=== PATIENT | male | born 1975 | race Caucasian/White ===

== ENCOUNTER 2017-05-30 07:55 | Inpatient (IN) | payer BC, OTHER ==
[~2017-05-30] VITALS: Ht 182.9 cm; Wt 81.6 kg
--- NOTE | 2017-05-30 19:15 | NUR ---
INTAKE ASSESSMENT BP:138/94, HR:105, RR:18, SpO2: 95%, T:98.1 Pt is in stable condition and is able to be admitted on the unit. Unit protocols regarding medications and vital signs every 4 hours were explained. Pt verbalized understanding. Will continue admission upon arrival on the unit.
--- NOTE | 2017-05-30 19:52 | NUR ---
ADMISSION NOTE Pt is a 41 y/o male arrived on unit at 1952 for ETOH withdrawal. Patient's body and skin check completed, skin intact and no contraband found. Pt has NKA, full code, regular diet and on fall/seizure precautions. Pt has PMH of anxiety, left ankle fracture (currently in cast) and hx of right shoulder surgery. Pts vitals upon admission are as follows: BP 138/94, HR 105, R 18, T 98.2, O2 95% and Pain 7/10. Pt does not have a PCP, smokes 1 pack daily and denies being hospitalized or in [place] [facility] in past 30 days. Pt does not qualify for MRSA swab. Pt is currently unemployed and lives alone. Pt reports having multiple "blackouts" from drinking recently. 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 Substance Use History: 1. Vodka 500 ml daily, last intake of 500 ml throughout the day ending at approximately 1600, at this rate for 6 months. 2. Beer 15 servings at 12-16 ounces each daily, last intake of "a few drinks," at this rate for 6 months. 3. Cocaine unspecified amount on an intermittent non-daily basis, last intake of unspecified amount "a few days ago," at this rate for 20 years. 4. Marijuana unspecified amount on an intermittent non-daily basis, last intake of unspecified amount on 05/29/17, at this rate for 20 years. Pt reports multiple treatment histories in the past, unable to recall names, last residential treatment facility was 5 years ago. Pt denies family PMH or substance abuse hx. Pt is A&O x 4, speech is coherent and was able to answer questions pertaining to admission. Pt reports "I started to feel sick when I was being assessed downstairs." Gait is unsteady r/t left ankle fracture from 10 days ago. Pt uses crutches or wheelchair for ambulation. Pt has a wrapped cast on left ankle. Upon assessment pt presents with anxiety, agitation, restlessness, nausea without vomiting, stomach cramps, pain in left foot r/t prior injury, heartburn, "hot and cold changes," chills, tremors and flushed skin. Respirations even and unlabored, lung sounds clear in all lung grey. Denies chest pain, SOB, no swelling present other than in left ankle from fx. Abdomen soft and non-tender, bowel sounds active in all quadrants. Last BM yesterday. Denies SI/HI. Patient given instructions about unit protocol and how to use call light, pt verbalizes understanding. Safety measures in place, side rails up x 2 with pads, bed locked in lowest position, call light within reach. Will continue to monitor.
[2017-05-30 20:00] VITALS: BP 139/94
[2017-05-30] MEDS ORDERED: NICOTINE POLACRILEX 4 MG GUM-PK OF TEN BC PRN (20:00)
[2017-05-30] MEDS ORDERED: MAGNESIUM HYDROXIDE 30 ML LIQUID UDC PO PRN (20:00)
[2017-05-30] MEDS ORDERED: LOPERAMIDE HCL 2 MG CAPSULE PO PRN (20:00)
[2017-05-30] MEDS ORDERED: LORAZEPAM 1 MG TABLET PO PRN (20:00)
[2017-05-30] MEDS ORDERED: DICYCLOMINE HCL 20 MG TABLET PO PRN (20:00)
[2017-05-30] MEDS ORDERED: NICOTINE 14 MG/24HR PATCH TD PRN (20:00)
[2017-05-30] MEDS ORDERED: ONDANSETRON 4 MG/2 ML VIAL IM PRN (20:00)
[2017-05-30] MEDS ORDERED: MIRALAX 17 GM POWD.PACK PO PRN (20:00)
[2017-05-30] MEDS ORDERED: LORAZEPAM 2 MG/1 ML VIAL IM PRN (20:00)
[2017-05-30 20:30] LABS: *AMPHETAMINE, URINE NEGATIVE (NEGATIVE); *BARBITURATE, URINE NEGATIVE (NEGATIVE); *CANNABINOID, URINE POSITIVE (NEGATIVE); *COCCAINE, URINE POSITIVE (NEGATIVE); *OPIATE, URINE NEGATIVE (NEGATIVE); *PHENCYCLIDINE SCREEN,URINE NEGATIVE (NEGATIVE)
[2017-05-30] MEDS ORDERED: LORAZEPAM 1 MG TABLET PO SCH (21:00)
[2017-05-30 21:16] LABS: BASOPHILS # (AUTO) 0.1 K/uL (0.0-8.0); BASOPHILS % (AUTO) 0.6 % (0.0-2.0); EOSINOPHILS # (AUTO) 0.1 K/uL (0.0-0.7); EOSINOPHILS % (AUTO) 0.9 % (0.0-7.0); HEMATOCRIT 42.1 % (36.7-47.1); HEMOGLOBIN 14.3 g/dL (12.5-16.3); LYMPHOCYTES # (AUTO) 2.6 K/uL (20.0-40.0); LYMPHOCYTES % (AUTO) 31.1 % (20.5-51.5); MEAN CORPUSCULAR HEMOGLOBIN 30.1 uug (23.8-33.4); MEAN CORPUSCULAR HGB CONC 34 g/dL (32.5-36.3); MEAN CORPUSCULAR VOLUME 88.8 fL (73.0-96.2); MONOCYTES # (AUTO) 0.7 K/uL (2.0-10.0); MONOCYTES % (AUTO) 8.5 % (0.0-11.0); NEUTROPHILS % (AUTO) 58.9 % (38.5-71.5); PLATELET COUNT (AUTO) 268 K/uL (152-348); RED BLOOD CELL COUNT(AUTO) 4.74 MIL/uL (4.06-5.63); WHITE BLOOD COUNT (AUTO) 8.4 K/uL (3.6-10.2)
[2017-05-30] MEDS: THIAMINE HCL 100 MG TABLET PO SCH (21:17)
[2017-05-30] MEDS: IBUPROFEN 600 MG TABLET PO PRN (21:18)
[2017-05-30] MEDS: MAG HYDROX/AL HYDROX/SIMETH 30 ML LIQUID UDC PO PRN (21:18)
[2017-05-30] MEDS: ONDANSETRON ODT 4 MG TAB.RAPDIS SL PRN (21:18)
--- NOTE | 2017-05-30 21:18 | NUR ---
LEONIDAS BECKFORD ODT, BENTYL, MOTRIN AND MAALOX ADMINISTRATION Pt reports nausea without vomiting, stomach cramps, pain in left foot r/t prior injury and heartburn. Safety measures in place. Call light within reach. Will continue to monitor. Addendum: 05/30/17 at 3935 by JEROME LORENZ RN REASSESSMENT AT [id number]
[2017-05-30 21:25] LABS: BILIRUBIN,TOTAL 0.4 mg/dL (0.2-1.0); CREATININE 1.2 mg/dL (0.6-1.3); MAGNESIUM 1.8 mg/dL (1.8-2.4); POTASSIUM 3.5 mmol/L (3.5-5.1); TOTAL PROTEIN, SERUM 7.5 g/dL (6.4-8.2)
[2017-05-30] MEDS: LORAZEPAM 1 MG TABLET PO PRN (22:26)
--- NOTE | 2017-05-30 22:33 | NUR ---
LEONIDAS WINSTON, BENTYL, MOTRIN AND MAALOX REASSESSMENT Pt reports nausea and stomach cramps improved but are still present. Pt reports persistent pain in left foot 07/20. Pt reports heartburn has ceased. Safety measures in place. Call light within reach. Will continue to monitor. Addendum: 05/31/17 at 0013 by JEROME LORENZ RN SHAKEEL WINSTON REASSESSMENT DONE AT [id number]
--- NOTE | 2017-05-30 22:34 | NUR ---
PRN ATIVAN 2 MG ADMINISTRATION CIWA 15, orders to give PRN Ativan 2 mg PO. Pt presents with anxiety, agitation, restless legs, flushed skin, tremors, nausea without vomiting and photosensitivity. Safety measures in place. Call light within reach. Will continue to monitor.
--- NOTE | 2017-05-30 23:34 | NUR ---
PRN ATIVAN 2 MG REASSESSMENT Pt laying in bed with eyes closed, CIWA deferred, to be assessed when pt is awake per orders. Respirations even and unlabored. Safety measures in place. Call light within reach. Will continue to monitor.
[2017-05-31] VITALS: BP 103/62
--- NOTE | 2017-05-31 | NUR ---
CIWA DEFERRED Pt laying in bed with eyes closed, CIWA deferred, to be assessed when pt is awake per orders. Respirations even and unlabored. Safety measures in place. Call light within reach. Will continue to monitor.
--- NOTE | 2017-05-31 03:30 | NUR ---
Assumed care: Assumed care from primary nurse. All information noted.
[2017-05-31 04:00] VITALS: BP 122/74
--- NOTE | 2017-05-31 07:25 | NUR ---
End of Shift Notes: Pt currently in bed with eyes closed. Pt slept for 8 hours. Pts last CIWA was 15. Pt currently on ativan taper to manage withdrawal symptoms. PRN Zofran and PRN Ativan given during shift. Fall and Sz precautions observed. Bed in lowest position. Side rails up x2. Call light functioning and within reach. All needs attended and met. Will endorse to day shift nurse.
--- NOTE | 2017-05-31 07:30 | NUR ---
Start Of Shift Report received Pt is a 41 year old male admitted to [facility] for ETOH and cocaine withdrawals. Pt is placed on a 5 day Ativan taper which is starting today. Pt has a left ankle fracture with a cast on it. Pt is W/C bound. Encouraged pt to drink more fluids to help facilitate detox process. When greeting pt, pt stated " I don't feel good, i feel the withdrawals coming up". Pt appeared anxious, agitated and sweaty, skin was very moist. Pt's last CIWA was a 15 at 0400. Pt received PRN Zofran and Ativan last night, per shift production supervisor nurse medication effective. Pt slept 8 hours on and off, stating he did not get good sleep during the night time. all orders reviewed, plan of care reviewed will continue to monitor and provide care for pt.
[2017-05-31 08:00] VITALS: BP 143/92
[2017-05-31] MEDS: MULTIVITAMINS,THERAPEUTIC TABLET PO SCH (08:44)
[2017-05-31] MEDS: LORAZEPAM 1 MG TABLET PO SCH ×4 (08:44→20:41)
[2017-05-31] MEDS: FOLIC ACID 1 MG TABLET PO SCH (08:44)
[2017-05-31] MEDS: THIAMINE HCL 100 MG TABLET PO SCH (08:44)
[2017-05-31] MEDS ORDERED: TUBERCULIN,PURIF.PROT.DERIV. 5 TU/0.1 ML TEST ID ONE (09:00)
[2017-05-31] MEDS: LORAZEPAM 1 MG TABLET PO PRN (10:57)
--- NOTE | 2017-05-31 10:57 | NUR ---
PRN MED. Pt c/o anxiety, presented with tremors moist skin and agitation, Pt stated " i don't feel good I'm having bad withdrawals" Pt assessed pt's CIWA score was 13. PRN Ativan 2 Mg administered PO. All needs met will continue to monitor effectiveness of the medication.
--- NOTE | 2017-05-31 11:00 | NUR ---
Nursing Note Pt's UDS is positive for BZD's. He denies using any BZD's. He was hospitalized 10 days ago for left ankle fracture but is unable to recall any of the medications he was given.
[2017-05-31] MEDS ORDERED: CLONIDINE HCL 0.1 MG TABLET PO PRN (11:30)
[2017-05-31] MEDS ORDERED: hydrALAZINE HCL 50 MG TABLET PO PRN (11:30)
--- NOTE | 2017-05-31 11:57 | NUR ---
PRN Reassessment Medication effective pt stated " i feel better now" Pts CIWA has decreased to 11, all needs met will continue to monitor pt
[2017-05-31 12:00] VITALS: BP 135/86
--- NOTE | 2017-05-31 14:00 | NUR ---
TRANSFER OF CARE RECEIVED REPORT FROM NURSE. PT IS CURRENTLY IN BED WITH EYES CLOSED, APPEARS TO BE SLEEPING. LAST CIWA IS 11. WILL CONTINUE TO MONITOR.
[2017-05-31] MEDS: IBUPROFEN 600 MG TABLET PO PRN ×2 (15:35→20:41)
--- NOTE | 2017-05-31 15:35 | NUR ---
PRN PT C/O PAIN IN THE L ANKLE D/T FX; PAIN 8/10. IBUPROFEN 600 MG PO PRN GIVEN. WILL MONITOR FOR EFFECTIVENESS.
[2017-05-31 16:00] VITALS: BP 128/66
--- NOTE | 2017-05-31 16:35 | NUR ---
REASSESSMENT PT REPORTS MEDICATION EFFECTIVE NOW 5/10 PAIN. WILL CONTINUE TO MONITOR.
--- NOTE | 2017-05-31 18:54 | NUR ---
END OF SHIFT PT IS A 41 Y/O M ADMITTED FOR ETOH W/D ON 05/30/17. PT IS ON AN ATIVAN TAPER THAT STARTED TODAY AND TOLERATING WELL. PT HAS BEEN IN BED SLEEPING INTERMITTENTLY MOST OF THE DAY. PT HAS A L ANKLE FX WITH A CAST AND AMBULATES WITH A WHEELCHAIR. PT STATES HE IS FEELING HOT AND HAVE PAIN IN THE L ANKLE 8/10. IBUPROFEN 600 MG PO PRN GIVEN AND WAS EFFECTIVE . ENCOURAGED PT TO INCREASE FLUIDS TO FACILITATE IN DETOX AND INCREASE HYDRATION. LAST CIWA IS 13. PT CONSUMED 25/50/0 % OF MEALS. SAFETY MEASURES IN PLACE. WILL GIVE ENDORSEMENT TO WEATHERIZATION COORDINATOR NURSE.
--- NOTE | 2017-05-31 19:45 | NUR ---
Start of Shift Notes Received 41 y/o male px, admitted on 05/30/2017 for medically supervised withdrawals from ETOH. Px was placed on 5 day Ativan taper. Last reported CIWA 13 by AM shift nurse. During the rounds at 1940, px is awake on bed in low fowlers position, and left casted foot elevated on 2 pillows. Px looks anxious, has flat affect, disheveled, unshaven. Px's room is odorous. Px stated "My anxiety is 4/10, I have leg pain 6/10 and diarrhea". Bed on lowest position, bed rails up 2x, and call light within reach.
[2017-05-31 20:00] VITALS: BP 147/87
--- NOTE | 2017-05-31 20:41 | NUR ---
PRN meds At 2040, px received Imodium 2mg/cap, 2 caps PO for first bout of 2x watery stools and Motrin 600 mg/tab, 1 tab PO for left ankle pain 08/20. We'll continue to monitor.
--- NOTE | 2017-05-31 21:41 | NUR ---
Reassessment of Pain Px verbalized that the pain is still at 6/10 after an hour of administration of Motrin 600 mg PO. We'll continue to monitor.
[2017-06-01] VITALS: BP 124/96
[2017-06-01 04:00] VITALS: BP 121/88
--- NOTE | 2017-06-01 04:00 | NUR ---
CIWA deferred CIWA deferred at 0000 and 0400 due to the px is asleep, to assess if the px is awake per doctor's order. We'll continue to monitor.
--- NOTE | 2017-06-01 07:12 | NUR ---
End of Shift Notes During the shift at 2040, Px was given Imodium 4 mg PO for 1st bout of diarrhea 2x and Motrin 600 mg PO for left leg pain of 6/10. Pain remains at 6/10. Motrin was not effective but px didn't ask for more medication. Imodium was effective, no more bouts of diarrhea after administration of Imodium PO. Px's oral intake is 1 L, voided 2x, No BM after 2 bouts of watery stools. At 0630, px is asleep on bed in low fowlers position, left leg elevated on 2 pillows. CIWA improved from 12 to 10. Bed on lowest position, bed rails up 2x, and call light within reach. Px endorsed to AM shift nurse.
--- NOTE | 2017-06-01 07:24 | NUR ---
Start of Shift Notes: Received patient in his room. Alert and oriented x 4. Denies AV hallucinations. Patient states "I feel much better." Room appears unkept. Patient appears disheveled and odorous. Encouraged maintenance of personal hygiene and space. Patient is a 41 year old male admitted for ETOH withdrawal. Placed on a 5-day Ativan taper as ordered. Patient is noted with cast on left ankle and hx of right shoulder fracture and anxiety. Educated patient on his current plan of care for the day and his medication regimen. Encouraged oral fluid intake and encouraged group participation to learn new skills to prevent relapse. Will continue to monitor.
[2017-06-01 08:00] VITALS: BP 137/75
[2017-06-01] MEDS: LORAZEPAM 1 MG TABLET PO SCH ×3 (08:27→20:24)
[2017-06-01] MEDS: THIAMINE HCL 100 MG TABLET PO SCH (08:27)
[2017-06-01] MEDS: FOLIC ACID 1 MG TABLET PO SCH (08:27)
[2017-06-01] MEDS: IBUPROFEN 600 MG TABLET PO PRN (08:27)
--- NOTE | 2017-06-01 08:27 | NUR ---
Motrin 600 mg PO given: Patient noted with complain of 5/10 left foot pain related to a fracture. Non-pharmacological interventions provided but ineffective. Medicated patient with Motrin 600 mg PO as ordered. Will monitor for effectiveness.
[2017-06-01] MEDS: MULTIVITAMINS,THERAPEUTIC TABLET PO SCH (08:32)
--- NOTE | 2017-06-01 09:27 | NUR ---
Re-assessment: Motrin Per patient, PRN Motrin was effective in reducing pain. PL 2.
[2017-06-01 10:08] LABS: HEPATITIS B SURFACE AG Negative (Negative)
[2017-06-01] MEDS: ONDANSETRON ODT 4 MG TAB.RAPDIS SL PRN (10:26)
--- NOTE | 2017-06-01 10:26 | NUR ---
Zofran 4 mg SL given: Patient complained of nausea but able to consume 100 % of breakfast. Medicated patient with Zofran 4 mg SL as ordered. Will monitor for effectiveness.
--- NOTE | 2017-06-01 10:27 | NUR ---
OT Ativan 2 mg PO given: Patient verbalizes "I'm having very strong cravings, I want to start drinking." CIWA 14, due to gross tremors, anxiety and agitation. OT order for Ativan 2 mg PO given as ordered per MD. Will monitor for effectiveness.
[2017-06-01] MEDS ORDERED: LORAZEPAM 1 MG TABLET PO ONE (10:30)
--- NOTE | 2017-06-01 11:26 | NUR ---
Re-assessment: Zofran 4 mg Per patient, PRN Zofran was effective in relieving nausea.
--- NOTE | 2017-06-01 11:27 | NUR ---
Re-assessment: Ativan 2 mg CIWA 10, less anxiety, less tremors, and less sweating noted. Patient states "I feel much better, cravings are no longer there." OT Ativan 2 mg PO was effective.
--- NOTE | 2017-06-01 11:43 | NUR ---
D/C'd from PT: Patient was discontinued from PT at this time. Patient is able to ambulate with crutches on unit and able to use w/c for locomotion off unit.
[2017-06-01 12:00] VITALS: BP 145/95
--- NOTE | 2017-06-01 12:27 | NUR ---
Therapist prompted client to attend all groups while in treatment to increase feelings of being connected to others and not be isolated in bedroom. Therapist explained the benefits of attending groups such as learning new coping tools, learning about feelings/emotions and being able to learn to decrease negative feelings and thoughts.
[2017-06-01] MEDS ORDERED: HYDROXYZINE PAMOATE 25 MG CAPSULE PO ONE (12:30)
--- NOTE | 2017-06-01 12:30 | NUR ---
Communication: Patient verbalized "I don't feel well, I am having cravings again. I want to drink Vodka." CIWA 12 due to anxiety, agitation. BP 145/95, Pulse 75. Notified MD Cooney. entered in orders for patient to receive Vistaril 50 mg PO x 1 now. Orders noted and carried out.
--- NOTE | 2017-06-01 12:34 | NUR ---
OT Vistaril 50 mg PO/Clonidine 0.1mg PO given: OT Vistaril 50 mg PO given for complain of anxiety. BP 145/95, Pulse 75. Denies any complains of headache, dizziness and/or chest pain. Denies S/i or H/I. No AV hallucinations noted. Medicated patient with Vistaril 50 mg PO and Clonidine 0.1mg PO given as ordered. Will monitor for effectiveness.
--- NOTE | 2017-06-01 13:34 | NUR ---
Re-assessment: Clonidine/Vistaril Patient's blood pressure 130/86, appears to be more at ease. Laying in bed watching TV. PRN Vistaril and Clonidine were effective.
[2017-06-01 16:00] VITALS: BP 128/84
--- NOTE | 2017-06-01 16:35 | NUR ---
MD Communication: Labs Patient's Hep C results returned: >11.0H. Notified MD Cooney. Per MD, he will talk to the patient and inform him.
--- NOTE | 2017-06-01 19:02 | NUR ---
End of Shift Notes: Patient continues to be on 5-day Ativan taper as ordered. No adverse reactions noted. VS monitored closely. Noted with BP 145/95 at 1234, medicated patient with Clonidine 0.1mg PO as ordered. Withdrawal symptoms were closely monitored. Initial CIWA 14, patient presented with anxiety/agitation, fatigue, gross tremors, sweating and increased cravings. Medicated patient with Motrin 600 mg PO at 0827 for pain to left ankle with help after 1 hour. PRN Zofran and OT Ativan 2 mg PO was given at 1027 with help. At 1234, PRN Vistaril was given for anxiety with help after 1 hour. Last CIWA 11. Per patient, Ativan has been effective in reducing his withdrawal symptoms. Patient uses w/c for locomotion off unit and crutches for locomotion on unit. Socially withdrawn with sad facial expression. Encouraged to socialize with his peers and to attend group for redirection and social interaction. All needs met and attended. Will continue to monitor closely.
--- NOTE | 2017-06-01 19:02 | NUR ---
START OF SHIFT NOTE: 41 year old male presented for Alcohol/Vodka and Beer withdrawal, tolerated well with ordered 5 day Ativan Taper. Patient is alert and oriented x4. Patient uses wheelchair and crutches. Patient 's c/o feelings of low self- esteem, increased anxiety, depression, and irritability. Patient denied SI/HI. Emotional support provided, and patient 's reassuring. Last CIWA=3 @1600 per day shift nurse report. CIWA=11 @1600: Patient presented with anxiety, agitation, nervousness, nausea, tremors, sweating, restlessness, fatigue, and body aches. PRN Motrin 600 mg PO administrated for pain in left ankle@0827, PRN Zofran 4 mg SL administrated for nausea @1026, PRN Vistaril 50 mg PO administrated for anxiety @1234, and PRN Clonidine 0.1 mg PO administrated @1234 for blood pressure 145/95 as ordered by day shift nurse were effective per day shift nurse report. Patient encouraged to express his feelings. Encouraged to fluids intake as tolerated. Encouraged to attend group activities. All needs met. Safety measures in place: Call light within reach, bed is locked in lowest position, padded bed rails up bilaterally. Patient endorsed by outgoing day shift nurse. Will continue to monitor closely.
[2017-06-01 20:00] VITALS: BP 134/87
[2017-06-01] MEDS: diphenhydrAMINE 50 MG CAPSULE PO PRN (20:24)
[2017-06-01] MEDS: GABAPENTIN 300 MG CAPSULE PO SCH (20:24)
--- NOTE | 2017-06-01 20:24 | NUR ---
PRN BENADRYL 50 MG 1 CAPSULE PO ADMINISTRATION PRN BENADRYL 50 MG PO ADMINISTRATED FOR INSOMNIA ORDERED. PATIENT TOLERATED WELL. ALL SAFETY MEASURES IN PLACE: CALL LIGHT WITHIN REACH, BED LOCKED IN LOWEST POSITION, PADDED BED RAILS UP X2. WILL CONTINUE TO MONITOR CLOSELY.
--- NOTE | 2017-06-01 21:24 | NUR ---
RE-ASSESSMENT PRN Benadryl PO administrated for insomnia @2100 was effective. Patient is sleeping. Respirations are even and unlabored. RR:15. All needs met. Safety measures in place: Call light within reach, bed is locked in lowest position, padded bed rails up bilaterally. Will continue to monitor closely.
[2017-06-02] VITALS: BP 199/91
[2017-06-02] MEDS: ACETAMINOPHEN 325 MG TABLET PO PRN ×2 (00:20→08:31)
--- NOTE | 2017-06-02 00:20 | NUR ---
PRN TYLENOL 650 MG PO ADMINISTRATION Patient c/o BLE pain "11/20". PRN Tylenol 650 mg PO administrated for as ordered with full glass of water. Patient tolerated well. All needs met. Safety measures in place: Call light within reach, bed is locked in lowest position, padded bed rails up bilaterally. Will continue to monitor closely.
--- NOTE | 2017-06-02 01:20 | NUR ---
RE-ASSESSMENT Patient is sleeping. RR 16. Respirations are even and unlabored. PRN Tylenol 650 mg PO administrated @0020 for BLE pain "11/20" was effective. All needs met. Safety measures in place: Call light within reach, bed is locked in lowest position, padded bed rails up bilaterally. Will continue to monitor closely.
[2017-06-02 04:00] VITALS: BP 125/76
--- NOTE | 2017-06-02 07:00 | NUR ---
END OF SHIFT NOTE Presented 41 year old male patient continues 5 Day Ativan Taper ordered for ETOH/Vodka,Beer withdrawal. The patient with tolerated well. Withdrawal symptoms was closely monitored. Patient is alert and oriented x4. Patient uses wheelchair and crutches. Patient appears worry, sad, diaphoretic, unshaven, unkempt with uncombed hair. Education in safety and hygiene care provided to patient. Encouraged to independently perform hygiene care. Encouraged express feelings. CIWA= 10 @1999. CIWA =13 @0000. Last CIWA=10 @0400. Patient presented with anxiety, agitation, depression, nervousness, tremors, body aches, sweating, restlessness, and fatigue. Patient denies SI/HI. PRN Tylenol 650 mg PO administrated for BLE pain "11/20" @0020 was effective. Patient slept 9 hours, intake 1,579ml, voided x2. Safe and calm environment with minimized noises was provided. Patient encouraged to increase oral fluid intake as tolerated. Patient encouraged to attend group activities. All needs met. Safety measures in the place: Call light within reach, bed in the lowest position and locked, padded rails up x2. Patient endorsed to day shift nurse. Addendum: 06/03/17 at 0429 by TIERRA LOUIE RN PRN Benadryl PO administrated for insomnia @2100 was effective.
--- NOTE | 2017-06-02 07:05 | NUR ---
Start of Shift Chalk Molding Machine Operator received report on 41 year old male admitted to [facility] on 05/30/17 for medical detoxification management of ETOH withdrawals. Pt reports NKA, full code and regular diet. PMH of anxiety and has a current left ankle fracture, requiring use of wheelchair and crutches due to non-weight bearing status. Pt is currently on and Ativan taper and has tolerated well with last CIWA 10 at 0400. Chalk Molding Machine Operator encounters pt resting in room with eyes closed. Rise and fall of chest noted, with even and unlabored respirations. Bed in low position, wheels locked and side rails up x2. Will continue to monitor, support and encourage according to plan of care.
[2017-06-02 08:15] VITALS: BP 133/82
[2017-06-02] MEDS: THIAMINE HCL 100 MG TABLET PO SCH (08:31)
[2017-06-02] MEDS: MULTIVITAMINS,THERAPEUTIC TABLET PO SCH (08:31)
[2017-06-02] MEDS: GABAPENTIN 300 MG CAPSULE PO SCH ×3 (08:31→20:25)
[2017-06-02] MEDS: FOLIC ACID 1 MG TABLET PO SCH (08:31)
[2017-06-02] MEDS: LORAZEPAM 1 MG TABLET PO SCH ×2 (08:31→13:41)
--- NOTE | 2017-06-02 08:31 | NUR ---
PRN Tylenol Pt complain of pain of 7/10 on left ankle. Pt states he has attempted non-pharmacological interventions and requests medication. Door To Door Salesman administers medication per order and tolerated well. Will continue to monitor, support and encourage according to plan of care.
--- NOTE | 2017-06-02 09:31 | NUR ---
PRN Re-Assessment Pt states he is still experiencing pain at level 4/10. Will continue to monitor, support and encourage according to plan of care.
[2017-06-02 12:26] VITALS: BP 138/83
[2017-06-02] MEDS ORDERED: LORAZEPAM 1 MG TABLET PO PRN ×2 (14:00)
--- NOTE | 2017-06-02 14:59 | NUR ---
Surgical Wrap Pt is expressing desire to unwrap his cast, soft cast with yeni wrapping. Fishing Tool Supervisor expressed concern of pt's wishes and educated pt on importance of continued compliance with aftercare instructions. Pt insists his surgeon in [place] has Ok'd pt to remove wrapping due to it being a "soft cast". Fishing Tool Supervisor expressed desire to allow field underwriter to contact MD before removing dressing. Pt states, " I don't have no doctor here for this." Fishing Tool Supervisor re-affirmed Dr. Cooney was his MD and able to care for his injury. Pt stated, " I don't need the doctor. I will take it off if I want to." Fishing Tool Supervisor attempted to educate pt again, but pt became irritable, angry and dismissive. Fishing Tool Supervisor left the room to contact Dr. Cooney.
[2017-06-02 16:28] VITALS: BP 145/93
[2017-06-02] MEDS ORDERED: LORAZEPAM 1 MG TABLET PO SCH ×2 (17:00→21:00)
--- NOTE | 2017-06-02 18:45 | NUR ---
End of Shift Tile Edger provided report on 41 year old male admitted to [facility] on 05/30/17 for medical detoxification management of ETOH withdrawals. Pt reports NKA, full code and regular diet. PMH of anxiety and has a current left ankle fracture, requiring use of wheelchair and crutches due to non-weight bearing status. Pt is currently on and Ativan taper and has tolerated well with last CIWA 8 at 1600. Pt has been irritable, withdrawn, and agitated, rude at times. Pt can be manipulative and demanding. Pt expresses a desire to be involved in where he will transition to, endorsing concern about being, set up in another dump. Pt denies being any detox centers this year. Pt was adamant about removing his surgery wrap from his surgically repaired left ankle. Pt educated on need to keep wrap in place until notified by a doctor it is ok to remove. Pt states, they already changed twice back home. My doctor said I could change it, petey its a soft cast. Pt educated on importance not undoing wrap until supervised and ordered. MD made aware. Bed in low position, wheels locked and side rails up x2. Will continue to monitor, support and encourage according to plan of care.
--- NOTE | 2017-06-02 18:45 | NUR ---
START OF SHIFT NOTE: Presented 41 year old male patient continues 5 day Ativan Taper ordered for Alcohol/Vodka and Beer withdrawal. Patient tolerated well. Withdrawal symptoms monitoring closely. Patient is alert and oriented x4. Patient uses wheelchair and crutches r/t fracture/soft cast on his left ankle. Patient c/o easily overwhelmed. He is appears irritable, worry,and sad with avoidant eye contact. Emotional support and reassuring provided. Patient encouraged to express his feelings. Patient noted disheveled, unshaven, unkempt with uncombed hair. His clothes are dirty and patient refused to change them. Educated in safety and hygiene care. Encouraged to independently perform hygiene care. Last CIWA=3 @1600 per day shift nurse report. CIWA=11 @1600: Patient presented with anxiety, agitation, nervousness, tremors, sweating, restlessness, fatigue, headache, and body aches. PRN Tylenol 650 mg PO administrated for headache as ordered by day shift nurse @0831 was effective per day shift nurse report. Encouraged to fluids intake as tolerated. Encouraged to attend group activities. All needs met. Safety measures in place: Call light within reach, bed is locked in lowest position, padded bed rails up bilaterally. Patient endorsed by day shift nurse. Will continue to monitor closely.
[2017-06-02 20:00] VITALS: BP 128/77
[2017-06-02] MEDS: diphenhydrAMINE 50 MG CAPSULE PO PRN (20:25)
--- NOTE | 2017-06-02 20:25 | NUR ---
PRN BENADRYL 50 MG 1 CAPSULE PO ADMINISTRATION PRN BENADRYL 50 MG 1 CAPSULE PO FOR INSOMNIA ADMINISTRATED ORDERED. PATIENT TOLERATED WELL. ALL SAFETY MEASURES IN PLACE: CALL LIGHT WITHIN REACH, BED LOCKED IN LOWEST POSITION, PADDED BED RAILS UP X2. WILL CONTINUE TO MONITOR CLOSELY.
[2017-06-02] MEDS: CLONIDINE HCL 0.1 MG TABLET PO SCH (20:26)
--- NOTE | 2017-06-02 21:25 | NUR ---
RE-ASSESSMENT PRN Benadryl 50 mg PO administrated for insomnia @2100 as ordered was effective. Patient is sleeping. RR 16. Respirations are even and unlabored. All needs met. Safety measures in place: Call light within reach, bed is locked in lowest position, padded bed rails up bilaterally. Will continue to monitor closely.
[2017-06-03] VITALS: BP 132/90
[2017-06-03 04:00] VITALS: BP 124/81
--- NOTE | 2017-06-03 07:18 | NUR ---
END OF SHIFT NOTE Presented 41 year old male patient continues 5 Day Ativan Taper ordered for ETOH/Vodka, Beer withdrawal. The patient with tolerated well. Withdrawal symptoms was closely monitored. Patient is alert and oriented x4. Patient uses wheelchair and crutches r/t left ankle fracture/soft cast. Assessment of left foot done Q4H: Cast is dry. Pulses are equal and strong in both BLE, capillary return less than 3 sec, ROM: patient freely put his toes up and down, skin is intact and dry. Patient appears worry and sad, c/o feelings of low self-esteem, increased anxiety, depression, and irritability. Patient denies SI/HI. Education provided to use of Relaxation Techniques: deep breathing exercises, guided imagery, and visualization. Patient noted unshaven, disheveled, unkempt, and uncombed. Hoarding food and spilled drinks noted around the room. Education in safety and hygiene care provided. Encouraged to independently perform hygiene care. CIWA= 11 @2000. CIWA =9 @0000. Last CIWA=8 @0400. Patient presented with anxiety, agitation, depression, nervousness, tremors, body aches, sweating, restlessness, and fatigue. PRN Benadryl PO administrated for insomnia @2024 was effective. Patient slept 7 hours, intake 1,200ml, voided x2. Safe and calm environment with minimized noises was provided. Patient encouraged to increase oral fluid intake as tolerated. Patient encouraged to attend group activities. All needs met. Safety measures in the place: Call light within reach, bed in the lowest position and locked, padded rails up x2. Patient endorsed to day shift nurse.
[2017-06-03 08:00] VITALS: BP 139/87
--- NOTE | 2017-06-03 08:10 | NUR ---
START OF SHIFT: RECEIVED PT A/O X 4. HE PRESENTS WITH IRRITABLE MOOD AND CONGRUENT AFFECT.HE REPORTS ANXIETY,RESTLESSNESS AND IRRITABILITY. ATIVAN TAPER IN PROGRESS TO MANAGE S/S OF W/D. CIWA 10. SOFT CAST INTACT TO L FOOT INTACT. ENCOURAGED INCREASED FLUIDS TO FACILITATE DETOX PROCESS. WILL CONTINUE TO MONITOR AND MANAGE S/S OF W/D.
[2017-06-03] MEDS: CLONIDINE HCL 0.1 MG TABLET PO SCH ×2 (08:46→20:33)
[2017-06-03] MEDS: THIAMINE HCL 100 MG TABLET PO SCH (08:46)
[2017-06-03] MEDS: FOLIC ACID 1 MG TABLET PO SCH (08:46)
[2017-06-03] MEDS: GABAPENTIN 300 MG CAPSULE PO SCH ×3 (08:46→20:32)
[2017-06-03] MEDS: MULTIVITAMINS,THERAPEUTIC TABLET PO SCH (08:46)
[2017-06-03] MEDS ORDERED: LORAZEPAM 1 MG TABLET PO SCH ×3 (09:00→21:00)
[2017-06-03 12:00] VITALS: BP 129/79
[2017-06-03] MEDS: ONDANSETRON ODT 4 MG TAB.RAPDIS SL PRN (14:37)
--- NOTE | 2017-06-03 14:40 | NUR ---
PRN ZOFRAN GIVEN FOR REPORTED NAUSEA. WILL MONITOR EFFECTIVENESS.
--- NOTE | 2017-06-03 15:40 | NUR ---
PRN ZOFRAN EFFECTIVE. PT STATES HE FEELS BETTER WITH NO NAUSEA.
[2017-06-03 16:00] VITALS: BP 138/79
--- NOTE | 2017-06-03 18:39 | NUR ---
END OF SHIFT: PT CONTINUES ON ATIVAN TAPER TO MANAGE S/S OF W/D WHICH INCLUDE ANXIETY ,TREMORS,NAUSEA IRRITABILITY, AND RESTLESSNESS.LAST CIWA 10. PT ISOLATED IN ROOM DURING SHIFT WITH NO INTERACTION WITH PEERS. PRN ZOFRAN GIVEN FOR NAUSEA AND EFFECTIVE. HE IS COMPLIANT WITH MEDS. NO GROUPS ATTENDED. EDUCATED PT ON IMPORTANCE OF GROUP ATTENDANCE TO IMPROVE COPING SKILLS AND PREVENT RELAPSE. WILL PASS SHIFT REPORT TO NIGHT NURSE.
[2017-06-03 20:00] VITALS: BP 135/90
--- NOTE | 2017-06-03 20:00 | NUR ---
START OF SHIFT NOTE RECEIVED REPORT FROM DAY SHIFT NURSE. PATIENT IS A 41 YEAR OLD MALE ADMITTED FOR ETOH WITHDRAWAL. PATIENT IS ON 5 DAY ATIVAN TAPER. PATIENT ID CURRENTLY ON CAST DUE TO LEFT ANKLE FRACTURE. PATIENT USES W/C AND CRUTCHES TO AMBULATE. PATIENT WAS GIVEN PRN ZOFRAN. LAST CIWA 10. RECEIVED PATIENT ALERT AND ORIENTED X 4. RESPIRATION EVEN AND UNLABORED. PATENT SAD, EMOTIONALLY VOLATILE, ANXIOUS, SWEATING, PAIN ON LEFT ANKLE. SAFETY MEASURES IN PLACE. CALL LIGHT IN REACH. WILL CONTINUE TO MONITOR.
[2017-06-03] MEDS: diphenhydrAMINE 50 MG CAPSULE PO PRN (20:32)
[2017-06-03] MEDS: IBUPROFEN 600 MG TABLET PO PRN (20:32)
--- NOTE | 2017-06-03 20:32 | NUR ---
PRN BENADRYL AND MOTRIN ADMINISTRATION PATIENT C/O LEFT ANKLE PAIN 10/20 AND REQUESTS FOR SLEEP AID. WILL MONITOR FOR EFFECTIVENESS
--- NOTE | 2017-06-03 21:32 | NUR ---
LEONIDAS VILLA AND RAÚL RE-ASSESSMENT PATIENT IN BED WITH EYES CLOSED. RESPIRATION EVEN AND UNLABORED. NO FACIAL GRIMACING. WILL CONTINUE TO MONITOR
[2017-06-04] VITALS: BP 120/82
--- NOTE | 2017-06-04 | NUR ---
CIWA DEFERRED PATIENT IN BED WITH EYES CLOSED. RESPIRATION EVEN AND UNLABORED. SAFETY MEASURES IN PLACE. CALL LIGHT IN REACH. WILL CONTINUE TO MONITOR.
--- NOTE | 2017-06-04 04:00 | NUR ---
CIWA DEFERRED PATIENT IN BED WIT EYES CLOSED. VS REFUSED. RESPIRATION EVEN AND UNLABORED. SAFETY MEASURES IN PLACE. CALL LIGHT IN REACH. WILL CONTINUE TO MONITOR.
--- NOTE | 2017-06-04 07:08 | NUR ---
END OF SHIFT NOTE MONITORED PATIENT THROUGHOUT SHIFT. CONTINUE ON ATIVAN TAPER, TOLERATED WELL AND NO ADVERSE REACTION.PATIENT IS CURRENTLY ON CAST DUE TO LEFT ANKLE FRACTURE, INTACT. PATIENT USES W/C AND CRUTCHES TO AMBULATE. PATIENT COMPLIANT WITH MEDICATION. PRN BENADRYL AND MOTRIN FOR PAIN ON LEFT ANKLE. SAFETY MEASURES IN PLACE. CALL LIGHT IN REACH. WILL CONTINUE TO MONITOR. LAST CIWA 10. PATIENT SLEPT 7 HOURS. FLUID INTAKE 1,298 ML. VOIDED X 3. NO BM.
[2017-06-04 08:00] VITALS: BP 113/71
[2017-06-04] MEDS: FOLIC ACID 1 MG TABLET PO SCH (08:07)
[2017-06-04] MEDS: IBUPROFEN 600 MG TABLET PO PRN (08:07)
[2017-06-04] MEDS: GABAPENTIN 300 MG CAPSULE PO SCH ×3 (08:07→21:00)
[2017-06-04] MEDS: CLONIDINE HCL 0.1 MG TABLET PO SCH ×2 (08:08→12:11)
[2017-06-04] MEDS: THIAMINE HCL 100 MG TABLET PO SCH (08:08)
[2017-06-04] MEDS: MULTIVITAMINS,THERAPEUTIC TABLET PO SCH (08:08)
[2017-06-04] MEDS: LORAZEPAM 1 MG TABLET PO SCH ×2 (08:08→21:00)
--- NOTE | 2017-06-04 08:15 | NUR ---
START OF SHIFT: RECEIVED PT A/O X 4. HE PRESENTS WITH ANXIOUS MOOD AND CONGRUENT. HE IS DISHEVELED.HE REPORTS ANXIETY,IRRITABILITY RESTLESSNESS AND ETOH CRAVINGS. HE REPORTS PAIN TO L FOOT 7/10 ON SCALE. ATIVAN TAPER IN PROGRESS TO MANAGE S/S OF W/D. CIWA 9. MOTRIN PO PRN GIVEN TO MANAGE PAIN. SOFT CAST INTACT TO L FOOT INTACT. ENCOURAGED GROUP ATTENDANCE TO IMPROVE COPING SKILLS AND PREVENT RELAPSE. WILL CONTINUE TO MONITOR AND MANAGE S/S OF W/D AND PROVIDE SAFE AND SUPPORTIVE ENVIRONMENT.
[2017-06-04 12:00] VITALS: BP 120/77
[2017-06-04] MEDS: HYDROXYZINE PAMOATE 25 MG CAPSULE PO PRN ×2 (12:11→18:32)
--- NOTE | 2017-06-04 12:16 | NUR ---
PRN VISTARIL AND PRN CLONIDINE PO GIVEN FOR REPORTED RESTLESSNESS,CRAVINGS,ANXIETY AND AGITATION. WILL MONITOR EFFECTIVENESS OF PRN MEDS.
--- NOTE | 2017-06-04 13:16 | NUR ---
PT STATES THAT THE PRN MEDS WERE EFFECTIVE AND HE FEELS BETTER.
[2017-06-04] MEDS ORDERED: HYDR-3895 PO (13:48)
[2017-06-04] MEDS ORDERED: CLON0.1T14 PO (13:48)
[2017-06-04] MEDS ORDERED: GABA-534 PO ×2 (13:48)
[2017-06-04] MEDS ORDERED: DIPH50CA37 PO (13:48)
[2017-06-04] MEDS ORDERED: IBUP-1955 PO (13:48)
[2017-06-04 16:00] VITALS: BP 121/72
[2017-06-04] MEDS: MAG HYDROX/AL HYDROX/SIMETH 30 ML LIQUID UDC PO PRN (18:32)
--- NOTE | 2017-06-04 18:51 | NUR ---
END OF SHIFT: PT CONTINUES ON ATIVAN TAPER TO MANAGE S/S OF W/D WHICH INCLUDE ANXIETY, NAUSEA, IRRITABILITY, AND RESTLESSNESS. LAST CIWA 8. HE REPORTED ANXIETY AND AGITATION THIS AFTERNOON AND CLONIDINE AND VISTARIL GIVEN AND EFFECTIVE. PT ATTENDED GROUPS AND KEEPS HIS CASTED FOOT ELEVATED IN BED WHEN NOT IN GROUP. HE IS COMPLIANT WITH MEDS. WILL PASS SHIFT REPORT TO NIGHT NURSE.
--- NOTE | 2017-06-04 19:30 | NUR ---
START OF SHIFT Pt is a 41 y/o male admitted on 05/30/17 for ETOH withdrawal. Pt is on a 5 day Ativan taper, tolerating well. Per day shift nurse, last CIWA 8 and PRN Vistaril, Clonidine and Mylanta administered. Upon assessment pt is laying in bed and presents with anxiety, flat affect, racing thoughts, disheveled appearance, unkempt room, flushed skin, photosensitivity, difficulty falling asleep, pain in left foot 4/10, flat affect and is withdrawn. Pt refuses Motrin for left foot pain. Pt has wheelchair and crutches in room d/t left foot injury, has cast. X-ray of left foot showed acute comminuted intra-articular calcaneus fracture. Medications due. Safety measures in place. Call light within reach. Will continue to monitor.
[2017-06-04 20:00] VITALS: BP 126/82
--- NOTE | 2017-06-04 21:00 | NUR ---
PATIENT REFUSED MEDS Pt refused all scheduled medications and PRN Motrin for left foot pain. Educated patient risks/benefits of not taking mediations, pt verbalized understanding, stating "I just really want to try to not take anything." Safety measures in place. Call light within reach. Will continue to monitor.
--- NOTE | 2017-06-05 | NUR ---
CIWA DEFERRED AND VITALS REFUSED. Pt laying in bed with eyes closed, CIWA deferred, to be assessed when pt is awake per orders. Vitals refused. Respirations even and unlabored. Safety measures in place. Call light within reach. Will continue to monitor.
--- NOTE | 2017-06-05 04:00 | NUR ---
CIWA DEFERRED AND VITALS REFUSED Pt laying in bed with eyes closed, CIWA deferred, to be assessed when pt is awake per orders. Vitals refused. Respirations even and unlabored. Safety measures in place. Call light within reach. Will continue to monitor.
--- NOTE | 2017-06-05 07:13 | NUR ---
END OF SHIFT Pt is a 41 y/o male admitted on 05/30/17 for ETOH withdrawal. Pt is on a 5 day Ativan taper, tolerating well. Pt presented with anxiety, flat affect, racing thoughts, disheveled appearance, unkempt room, flushed skin, photosensitivity, difficulty falling asleep, pain in left foot 4/10, flat affect and is withdrawn. Pt refused Motrin for pain in left foot and scheduled Ativan and Neurontin. Educated patient about risks/benefits of medications, pt verbalized understanding. No medications administered. Last CIWA 7. Pt slept 7 hours. Intake 800 ml, void x 2, stool x 1. Safety measures in place. Call light within reach. Pts needs have been met. Endorsed to day shift nurse.
--- NOTE | 2017-06-05 07:35 | NUR ---
START OF SHIFT PT IS A 41 Y/O M ADMITTED ON 05/30/17 FOR ETOH W/D. PT IS ON A 5 DAY ATIVAN AND TOLERATING WELL. PT IS WITHDRAWAN, HAS A DISHEVELED APPEARANCE, PRESENTS FACIAL FLUSHING, AGITATION, ANXIETY, RESTLESSNESS, PAIN IN THE L FOOT 09/19 R/T FRACTURE. TREMORS NOTED. PT AMBULATES WITH A WHEELCHAIR. PT REFUSED ATIVAN TAPER DOSE LAST NIGHT PER WAREHOUSE TEAM MEMBER NURSE. ENCOURAGED PT TO INCREASE FLUIDS TOLERATED TO FACILITATE IN DETOX. PT LAST CIWA 7, NO PRNS GIVEN LAST NIGHT. SIDE RAILS UPX2, BED IN LOW POSITION, CALL LIGHT WITHIN REACH. SAFETY MEASURES IN PLACE. WILL CONTINUE TO MONITOR.
[2017-06-05 08:00] VITALS: BP 136/84
[2017-06-05] MEDS: GABAPENTIN 300 MG CAPSULE PO SCH ×3 (08:43→20:59)
[2017-06-05] MEDS: THIAMINE HCL 100 MG TABLET PO SCH (08:43)
[2017-06-05] MEDS: MULTIVITAMINS,THERAPEUTIC TABLET PO SCH (08:44)
[2017-06-05] MEDS: FOLIC ACID 1 MG TABLET PO SCH (08:44)
[2017-06-05] MEDS: LOPERAMIDE HCL 2 MG CAPSULE PO PRN (08:44)
--- NOTE | 2017-06-05 08:44 | NUR ---
PRN PT C/O DIARRHEA AND REQUESTED, PT REPORTED IT WAS BROUGHT ON BY DRINKING LARGE AMOUNTS OF COFFEE THIS MORNING. IMODIUM 2 MG PRN GIVEN. WILL MONITOR FOR EFFECTIVENESS.
[2017-06-05] MEDS: CLONIDINE HCL 0.1 MG TABLET PO SCH ×2 (08:45→20:59)
[2017-06-05] MEDS ORDERED: LORAZEPAM 1 MG TABLET PO SCH (09:00)
--- NOTE | 2017-06-05 09:44 | NUR ---
REASSESSMENT MED WAS EFFECTIVE; PT REPORTED DIARRHEA HAS CEASED. WILL CONTINUE TO MONITOR.
[2017-06-05] MEDS: IBUPROFEN 600 MG TABLET PO PRN ×2 (10:18→20:59)
--- NOTE | 2017-06-05 10:18 | NUR ---
PRN PT C/O L ANKLE PAIN AND LEG PAIN 09/19. IBUPROFEN 600 MG PO PRN GIVEN WILL MONITOR FOR EFFECTIVENESS.
--- NOTE | 2017-06-05 11:18 | NUR ---
REASSESSMENT PT REPORTED IBUPROFEN WAS EFFECTIVE FOR HIS PAIN NOW 4/10. WILL CONTINUE TO MONITOR.
[2017-06-05 12:00] VITALS: BP 132/74
[2017-06-05] MEDS: HYDROXYZINE PAMOATE 25 MG CAPSULE PO PRN ×2 (15:10→20:59)
[2017-06-05] MEDS: ONDANSETRON ODT 4 MG TAB.RAPDIS SL PRN (15:10)
[2017-06-05 16:00] VITALS: BP 125/71
--- NOTE | 2017-06-05 16:01 | NUR ---
PRN PT C/O INCREASED ANXIETY AND NAUSEA. ZOFRAN 4 MG SL PRN AND VISTARIL PO PRN GIVEN. WILL MONITOR FOR EFFECTIVENESS. Addendum: 06/05/17 at 1606 by ALICE SHERMAN RN CORRECT TIME IS 1510.
--- NOTE | 2017-06-05 16:06 | NUR ---
REASSESSMENT PT REPORTED NAUSEA HAS CEASED AND ANXIETY IS NOW 2/10. WILL CONTINUE TO MONITOR.
--- NOTE | 2017-06-05 19:30 | NUR ---
START OF SHIFT Pt is a 41 y/o male admitted on 05/30/17 for ETOH withdrawal. Pt finished a 5 day Ativan taper and is scheduled to be d/c tomorrow. Per day shift nurse, last CIWA 6 and PRN Imodium, Motrin, Vistaril and Zofran odt administered. Upon assessment pt is laying in bed and presents with anxiety, racing thoughts, unkempt room, flushed skin, difficulty falling asleep, pain in left foot 4/10 and flat affect. Pt has wheelchair and crutches in room d/t left foot injury, seen by PT today. Medications due. Safety measures in place. Call light within reach. Will continue to monitor.
--- NOTE | 2017-06-05 19:32 | NUR ---
END OF SHIFT PT'S LAST CIWA 6 @1600. PT COMPLETED ATIVAN TAPER AND TOLERATED WELL. PT IS TO BE DISCHARGED TOMORROW AND STATES HE IS FEELING BETTER AND WELL ENOUGH TO LEAVE DETOX UNIT. PT HAD IMODIUM, IBUPROFEN, VISTARIL, ZOFRAN PRNS GIVEN DURING SHIFT. PT HAD UNI BOOT FITTED FOR LEFT ANKLE FX. PT AMBULATES WITH CRUTCHES AROUND UNIT. SAFETY MEASURES IN PLACE. WILL GIVE PERTINENT INFO TO COMPUTER GAME DESIGNER NURSE.
[2017-06-05 20:00] VITALS: BP 138/82
[2017-06-05] MEDS: diphenhydrAMINE 50 MG CAPSULE PO PRN (20:59)
--- NOTE | 2017-06-05 21:00 | NUR ---
PRN BENADRYL, MOTRIN AND VISTARIL ADMINISTRATION Pt requests sleep aid. Pt presents with left foot pain 6/10 and anxiety. Safety measures in place. Call light within reach. Will continue to monitor.
--- NOTE | 2017-06-05 22:00 | NUR ---
PRN BENADRYL, MOTRIN AND VISTARIL REASSESSMENT Pt laying in bed with eyes closed, medications noted effective. Respirations even and unlabored. Safety measures in place. Call light within reach. Will continue to monitor.
[2017-06-06] MEDS: HYDROXYZINE PAMOATE 25 MG CAPSULE PO PRN (05:40)
[2017-06-06] MEDS: LOPERAMIDE HCL 2 MG CAPSULE PO PRN (05:40)
--- NOTE | 2017-06-06 05:40 | NUR ---
PRN VISTARIL AND IMODIUM ADMINISTRATION Pt woke up and appears anxious and restless with hyperverbal speech. Pt reports loose stool. Pt states "I think it's this coffee." Safety measures in place. Call light within reach. Will continue to monitor.
--- NOTE | 2017-06-06 06:40 | NUR ---
PRN VISTARIL AND IMODIUM REASSESSMENT Pt reports improvement in anxiety. Pt states he has has "2 more soft stools" since Imodium administration. Encouraged increased fluid intake. Will continue to monitor.
--- NOTE | 2017-06-06 07:17 | NUR ---
END OF SHIFT Pt is a 41 y/o male admitted on 05/30/17 for ETOH withdrawal. Pt finished a 5 day Ativan taper and is scheduled to be d/c today. Pt presented with anxiety, racing thoughts, unkempt room, flushed skin, difficulty falling asleep, pain in left foot 4/10 and flat affect. Pt has wheelchair and crutches in room d/t left foot injury. Scheduled medications and PRN Benadryl, Vistaril x 2, Motrin and Imodium administered, effective in S/S of withdrawal AEB CIWA 6 lowered to 5 during shift. Pt slept 8 hours. Intake 355 ml, void x 1, stool x 0. Safety measures in place. Call light within reach. Pts needs have been met. Endorsed to day shift nurse.
--- NOTE | 2017-06-06 07:48 | NUR ---
START OF SHIFT NOTE Received report from night nurse, 41 year old male admitted for ETOH withdrawal. Patient completed his Ativan taper tolerated well. Patient scheduled for d/c today. Per endorsement patient was given PRN Imodium, Vistaril, Benadryl effective per night nurse. Received patient alert awake. Patient wants to go go down for smoke denies any pain or discomfort at this time. Educated patient with current plan care of rehab and importance of attending groups and activities with good verbal understanding. Safety measures in place. Will cont with plan of care.
[2017-06-06 08:00] VITALS: BP 150/72
[2017-06-06] MEDS: MULTIVITAMINS,THERAPEUTIC TABLET PO SCH (08:22)
[2017-06-06 08:23] VITALS: BP 150/72
[2017-06-06] MEDS: THIAMINE HCL 100 MG TABLET PO SCH (08:23)
[2017-06-06] MEDS: FOLIC ACID 1 MG TABLET PO SCH (08:23)
[2017-06-06] MEDS: GABAPENTIN 300 MG CAPSULE PO SCH (08:23)
[2017-06-06] MEDS: CLONIDINE HCL 0.1 MG TABLET PO SCH (08:23)
[2017-06-06] MEDS: IBUPROFEN 600 MG TABLET PO PRN (08:33)
--- NOTE | 2017-06-06 08:33 | NUR ---
PRN MOTRIN Patient c/o of left foot pain 5/10, PRN Motrin 600mg PO given as ordered. Will cont to monitor and reassess.
--- NOTE | 2017-06-06 09:33 | NUR ---
MOTRIN REASSESSMENT Per patient Motrin was effective in lowering his pain 2/10.
--- NOTE | 2017-06-06 09:35 | NUR ---
DISCHARGE NOTE Patent has been discharged from [facility] Patient is in Stable condition, VS WNL. Denies suicidal and homicidal ideations at this time. All documentation has been completed, paperwork signed and dated. Pt left with all of his belongings,and prescriptions. Pt has been discharged from [facility] on 06/06/17 at 0935. has been Notified.
== END 2017-06-06 09:35 | disposition other institution (70) | DRG 895 ==
LOC: SRC 18:48
PROVIDERS: ADMIT Internal Medicine; ATTEND Internal Medicine
PROC: HZ2ZZZZ Detoxification Services for Substance Abuse Treatment (ICD-10-PCS; principal; 2017-05-30)
PROC: HZ31ZZZ Individual Counseling for Substance Abuse Treatment, Behavioral (ICD-10-PCS; 2017-06-01)
PROC: HZ41ZZZ Group Counseling for Substance Abuse Treatment, Behavioral (ICD-10-PCS; 2017-06-04)
DX: F10.232 Alcohol dependence with withdrawal with perceptual disturbance (principal); I15.9 Secondary hypertension, unspecified; F12.10 Cannabis abuse, uncomplicated; F14.10 Cocaine abuse, uncomplicated; Y90.0 Blood alcohol level of less than 20 mg/100 ml; S82.892D Other fracture of left lower leg, subsequent encounter for closed fracture with routine healing; S92.062D Displaced intraarticular fracture of left calcaneus, subsequent encounter for fracture with routine healing; X58.XXXD Exposure to other specified factors, subsequent encounter; Z91.89 Other specified personal risk factors, not elsewhere classified; F17.210 Nicotine dependence, cigarettes, uncomplicated; F41.9 Anxiety disorder, unspecified; Z82.49 Family history of ischemic heart disease and other diseases of the circulatory system; Z20.5 Contact with and (suspected) exposure to viral hepatitis; F13.90 Sedative, hypnotic, or anxiolytic use, unspecified, uncomplicated; R26.81 Unsteadiness on feet; R73.9 Hyperglycemia, unspecified
CPT/HCPCS: 36415; 70030-TC; 73630; 80307; 80346; 80349; 80353; 83735; 85025; 86592; 86705; 86803; 87340; 87806; A4663; G0480; Q0162; Q0163